=== PATIENT | female | born 2000 | race Two or more races ===

== ENCOUNTER → 2024-01-06 | Outpatient (CLI) | payer MEDICAID ==
[2024-01-06 15:04] LABS: Basophils # (auto) 0.1 10 ^3/uL (0-0.2); Basophils % (auto) 0.6 % (0.0-2.0); Eosinophils # (auto) 0 10 ^3/uL (0-0.8); Eosinophils % (auto) 0.1 % (0.0-7.0); Hematocrit 35.8 % (36.0-46.0); Hemoglobin 12.1 g/dL (12.2-16.2); Lymphocytes # (auto) 2.2 10 ^3/uL (0.4-5.4); Lymphocytes % (auto) 19.2 % (10.0-50.0); Mean Corpuscular Hemoglobin 28.5 pg (28.0-32.0); Mean Corpuscular Hgb Conc. 33.7 g/dL (32.0-36.0); Mean Corpuscular Volume 84.6 fL (80.0-100.0); Monocytes # (auto) 0.7 10 ^3/uL (0-1.3); Monocytes % (auto) 5.8 % (0.0-12.0); Neutrophils # (auto) 8.4 10 ^3/uL (1.6-8.6); Neutrophils % (auto) 74.3 % (37.0-80.0); Red Blood Cells 4.24 10^6/uL (4.0-5.20); White Blood Cell 11.4 10^3/uL (4.4-10.8)
[2024-01-07 07:06] LABS: RPR Non Reactive (Non Reactive)
[2024-01-07 13:08] LABS: Chlamydia Trachomatis, NAA Negative (Negative); Neisseria gonorrhoeae, NAA Negative (Negative)
== END | disposition home or self-care (01) ==
LOC: LAB 14:45
PROVIDERS: ATTEND Obstetrics & Gynecology
DX: Z34.80 Encounter for supervision of other normal pregnancy, unspecified trimester (principal); Z3A.00 Weeks of gestation of pregnancy not specified
CPT/HCPCS: 36415; 85025; 86592

== ENCOUNTER 2024-02-05 16:45 | Observation (INO) | payer MEDICAID ==
[~2024-02-05] VITALS: Ht 157.5 cm; Wt 103.0 kg
[2024-02-06] MEDS ORDERED: PREN-96 PO (05:17)
== END 2024-02-05 20:39 | disposition home or self-care (01) ==
LOC: LDRP 16:45
PROVIDERS: ADMIT Obstetrics & Gynecology; ATTEND Obstetrics & Gynecology
DX: O62.9 Abnormality of forces of labor, unspecified (principal); Z3A.40 40 weeks gestation of pregnancy
CPT/HCPCS: 59025; 76818; 81002; 94760; G0378

== ENCOUNTER 2024-02-06 04:00 | Inpatient (IN) | payer MEDICAID ==
[~2024-02-06] VITALS: Ht 157.5 cm; Wt 103.0 kg
[2024-02-06] MEDS ORDERED: NALBUPHINE HCL 10 MG/1ml INJECTION IM PRN (05:00)
[2024-02-06] MEDS ORDERED: miSOPROStol 50 MCG per PRE-CUT 1/2 TAB PO PRN (05:00)
[2024-02-06] MEDS ORDERED: PREN-96 PO (05:17)
[2024-02-06] MEDS: LACTATED RINGER'S 1,000 ML IV SCH (05:22)
[2024-02-06] MEDS ORDERED: ONDANSETRON HCL 4 MG/2 ML VIAL IV PRN (06:45)
[2024-02-06] MEDS: NALBUPHINE HCL 10 MG/1ml INJECTION IV PRN (06:54)
[2024-02-06 07:31] LABS: Urine Bacteria FEW /hpf (None Seen); Urine Blood TRACE /uL (Negative); Urine Clarity Cloudy (Clear); Urine Color Light-Yellow (Yellow); Urine Protein, UAD Negative (Negative); Urine Specific Gravity 1.009 (1.001-1.035); Urine Urobilinogen Normal (Negative); Urine WBC 11 /hpf (0 - 5); Urine pH 5.5 (5.0-9.0)
[2024-02-06 07:34] LABS: Basophils # (auto) 0.1 10 ^3/uL (0-0.2); Basophils % (auto) 0.3 % (0.0-2.0); Eosinophils # (auto) 0 10 ^3/uL (0-0.8); Hematocrit 36.4 % (36.0-46.0); Hemoglobin 12.2 g/dL (12.2-16.2); Lymphocytes # (auto) 1.4 10 ^3/uL (0.4-5.4); Lymphocytes % (auto) 8.4 % (10.0-50.0); Mean Corpuscular Hemoglobin 28.2 pg (28.0-32.0); Mean Corpuscular Hgb Conc. 33.6 g/dL (32.0-36.0); Monocytes # (auto) 0.5 10 ^3/uL (0-1.3); Monocytes % (auto) 2.9 % (0.0-12.0); Neutrophils # (auto) 15.3 10 ^3/uL (1.6-8.6); Neutrophils % (auto) 88.4 % (37.0-80.0); Red Blood Cells 4.34 10^6/uL (4.0-5.20); White Blood Cell 17.3 10^3/uL (4.4-10.8)
[2024-02-06 07:42] LABS: INR 0.92 (0.9-1.15); Partial Thromboplastin Time 28.7 SEC (24.5-34.5); Prothrombin Time 9.8 sec (9.3-11.8)
[2024-02-06 07:51] LABS: Amphetamine Screen, Urine Neg (NEGATIVE); Benzodiazephine Screen, Urine Neg (NEGATIVE)
[2024-02-06 07:52] LABS: Barbiturate Scree,Urine Neg (NEGATIVE); Cannabinoid Screen, Urine Neg (NEGATIVE); Cocaine Screen, Urine Neg (NEGATIVE); Opiate Scree,Urine Neg (NEGATIVE); Phencyclidine Screen, Urine Neg (NEGATIVE)
[2024-02-06 07:54] LABS: Alanine Aminotransferase 12 U/L (7-40); Albumin 3.8 g/dL (3.2-4.8); Alkaline Phosphatase 119 U/L (46-116); Anion Gap 11 (5-15); Aspartate Aminotransferase 15 U/L (13-40); BUN/Creatinine Ratio 10.3 (10.0-20.0); Bilirubin, Total 0.4 mg/dL (0.2-1.0); Blood Urea Nitrogen 9 mg/dL (9-23); Calcium 9.5 mg/dL (8.7-10.4); Carbon Dioxide 21 mmol/L (20-30); Chloride 104 mmol/L (98-107); Glucose 89 mg/dL (74-106); Potassium 3.6 mmol/L (3.5-5.1); Sodium 136 mmol/L (136-145); Total Protein 6.6 g/dL (5.7-8.2)
[2024-02-06] MEDS: LACT. RINGERS/OXYTOCIN 20UNITS 500 ML IV ONE ×2 (08:27→08:30)
[2024-02-06] MEDS: WITCH HAZEL-GLYCERIN PAD TOP PRN (08:27)
[2024-02-06] MEDS: PHISODERM TOP SOLN 240ML BTL TOP PRN (08:28)
[2024-02-06] MEDS: DERMOPLAST 60ML BOTTLE TOP PRN (08:28)
[2024-02-06] MEDS: LIDOCAINE 2%HCL (LOCAL ANESTH.) INJ 20ML MDV IJ PRN (08:30)
[2024-02-06] MEDS ORDERED: IBUPROFEN 600 MG TAB PO PRN (08:45)
[2024-02-06] MEDS ORDERED: ONDANSETRON ODT 4 MG TAB PO PRN (08:45)
[2024-02-06] MEDS ORDERED: ACETAMINOPHEN 325 MG TAB PO PRN (08:45)
[2024-02-06 11:00] VITALS: BP 120/74; PULSE 60; RESP 16; TEMP 98; O2SAT 98
[2024-02-06 15:00] VITALS: BP 117/68; PULSE 62; RESP 18; TEMP 98.2; O2SAT 98
[2024-02-06 19:00] VITALS: BP 129/52; PULSE 71; RESP 16; TEMP 98.9; O2SAT 100
[2024-02-06] MEDS: DOCUSATE SOD 100 MG CAP PO SCH (22:00)
[2024-02-06 23:00] VITALS: BP 129/76; PULSE 78; RESP 16; TEMP 98.4; O2SAT 99
[2024-02-07 02:57] VITALS: BP 110/53; PULSE 73; RESP 16; TEMP 98.6; O2SAT 98
[2024-02-07 07:00] VITALS: BP 117/71; PULSE 65; RESP 18; TEMP 98.4; O2SAT 99
[2024-02-07 07:03] VITALS: PULSE 65; RESP 18; O2SAT 99
[2024-02-07] MEDS ORDERED: IBU600T PO (07:55)
[2024-02-07 11:02] VITALS: TEMP 36.9
== END 2024-02-07 10:54 | disposition home or self-care (01) | DRG 560 ==
LOC: LDRP 04:00 → OBSVTOIN 04:10 → LDRP 04:41
PROVIDERS: ADMIT Obstetrics & Gynecology; ATTEND Obstetrics & Gynecology
PROC: 10E0XZZ Delivery of Products of Conception, External Approach (ICD-10-PCS; principal; 2024-02-06)
PROC: 0HQ9XZZ Repair Perineum Skin, External Approach (ICD-10-PCS; 2024-02-06)
DX: O70.0 First degree perineal laceration during delivery (principal); Z37.0 Single live birth; Z3A.40 40 weeks gestation of pregnancy
CPT/HCPCS: 36415; 59025; 59409; 80053; 80307; 81001; 84112; 85025; 85610; 85730; 86592; 86703; 86762; 86803; 86850; 86900; 86901; 87340; 94760; 94762; 96360; 96361; 96366; 96374; 96375; G0378; J2590